=== PATIENT | female | born 1990 | race Caucasian/White ===

== ENCOUNTER 2017-05-16 04:18 | Inpatient (IN) | payer BC ==
[2017-05-16] MEDS ORDERED: Sodium Chloride 0.9% 2.5 ML Syringe FLUSH PRN (20:47)
[2017-05-16] MEDS ORDERED: Methylergonovine 0.2 MG/1 ML Amp IM PRN (20:47)
[2017-05-16] MEDS ORDERED: Misoprostol 25 MCG (1/4 of 100 MCG) Tab VAG PRN (20:47)
[2017-05-16] MEDS ORDERED: Sodium Chloride 0.9% 10 ML Syringe FLUSH PRN (20:47)
[2017-05-16] MEDS ORDERED: Misoprostol 200 MCG Tab PO PRN (20:47)
[2017-05-16] MEDS ORDERED: Lidocaine 1% 50 ML MDV INJECT PRN (20:47)
[2017-05-16] MEDS ORDERED: Carboprost Tromethamine 250 MCG/1 ML Amp IM PRN (20:47)
[2017-05-16] MEDS ORDERED: Butorphanol 1 MG/ML SDV IVPUSH PRN (20:47)
[2017-05-16] MEDS ORDERED: Terbutaline 1 MG/ML SDV SUBCUT PRN (20:47)
[2017-05-16] MEDS ORDERED: Water For Irrigation,Sterile 1,000 ML Container IRR PRN (20:47)
[2017-05-16] MEDS ORDERED: Oxytocin/0.9 % Sodium Chloride 30 UNIT/500 ML BAG IV SCH ×2 (21:00)
[2017-05-16] MEDS ORDERED: Misoprostol 25 MCG (1/4 of 100 MCG) Tab VAG SCH (21:00)
[2017-05-16] MEDS: Lactated Ringers 1,000 ML IV SCH (21:07)
[2017-05-17] MEDS: Lactated Ringers 1,000 ML IV SCH (01:33)
--- NOTE | 2017-05-17 01:56 | PCM.PREANE ---
Preanesthetic Assessment - Anesthesia/Transfusion/Family Hx Anesthesia History: Prior Anesthesia Without Reaction Transfusion History: No Prior Transfusion(s) - Review of Systems General: No Symptoms Pulmonary: No Symptoms Cardiovascular: No Symptoms Gastrointestinal: No Symptoms Neurological: No Symptoms Other: Reports: None - Physical Assessment Height: 5 ft 6 in Weight: 94.256 kg ASA Class: 2 Mental Status: Alert & Oriented x3 Airway Class: Mallampati = 2 Dentition: Reports: Normal Dentition Thyro-Mental Finger Breadths: 3 Mouth Opening Finger Breadths: 3 ROM/Head Extension: Full Lungs: Clear to Auscultation, Normal Respiratory Effort Cardiovascular: Regular Rate, Regular Rhythm - Lab Values: Laboratory Last Values WBC 8.55 K/uL (4.0-11.0) 05/16/17 21:00 RBC 4.24 M/uL (4.30-5.90) L 05/16/17 21:00 Hgb 12.1 g/dL (12.0-16.0) 05/16/17 21:00 Hct 36.6 % (36.0-46.0) 05/16/17 21:00 MCV 86.3 fL (80.0-98.0) 05/16/17 21:00 MCH 28.5 pg (27.0-32.0) 05/16/17 21:00 MCHC 33.1 g/dL (31.0-37.0) 05/16/17 21:00 RDW Std Deviation 45.1 fl (28.0-62.0) 05/16/17 21:00 RDW Coeff of Harvey 15 % (11.0-15.0) 05/16/17 21:00 Plt Count 201 K/uL (150-400) 05/16/17 21:00 MPV 9.90 fL (7.40-12.00) 05/16/17 21:00 Nucleated RBC % 0.0 /100WBC 05/16/17 21:00 Nucleated RBCs # 0 K/uL 05/16/17 21:00 Blood Type B POSITIVE 05/16/17 21:00 Antibody Screen NEGATIVE 05/16/17 21:00 - Allergies Allergies/Adverse Reactions: Allergies Allergy/AdvReac Type Severity Reaction Status Date / Time Penicillins Allergy Rash Verified 09/28/14 14:59 - Acknowledgements Anesthesia Type Planned: Epidural Pt an Appropriate Candidate for the Planned Anesthesia: Yes Alternatives and Risks of Anesthesia Discussed w Pt/Guardian: Yes Pt/Guardian Understands and Agrees with Anesthesia Plan: Yes PreAnesthesia Questionnaire - Past Health History Medical/Surgical History: Denies Medical/Surgical History Cardiovascular History: Reports: None Respiratory History: Reports: None Gastrointestinal History: Reports: GERD Genitourinary History: Reports: None 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 Para: 1 LMP (Approximate): Musculoskeletal History: Reports: None Neurological History: Reports: Migraines Psychiatric History: Reports: Anxiety, Depression Endocrine/Metabolic History: Reports: Obesity/BMI 30+ Hematologic History: Reports: None Immunologic History: Reports: None Oncologic (Cancer) History: Reports: None Dermatologic History: Reports: None - Infectious Disease History Infectious Disease History: Reports: None - SUBSTANCE USE Smoking Status *Q: Never Smoker Second Hand Smoke Exposure: No Recreational Drug Use History: No - CURRENT (IN HOUSE) MEDS Current Meds: Current Medications Butorphanol Tartrate (Stadol) 1 mg IVPUSH ASDIRECTED PRN PRN Reason: Pain Last Admin: 05/17/17 01:18 Dose: 1 mg Carboprost Tromethamine (Hemabate Ds) 250 mcg IM ASDIRECTED PRN PRN Reason: Post Hemorrhage Lactated Ringer's (Ringers, Lactated) 1,000 mls @ 150 mls/hr IV ASDIRECTED IZABEL Last Admin: 05/17/17 01:33 Dose: 150 mls/hr Oxytocin/Sodium Chloride (Oxytocin 30 Unit/500 Ml-Ns) 30 unit in 500 mls @ 2 mls/hr IV TITRATE IZABEL; 2 MUNITS/MIN PRN Reason: Protocol Oxytocin/Sodium Chloride (Oxytocin 30 Unit/500 Ml-Ns) 30 unit in 500 mls @ 999 mls/hr IV ASDIRECTED IZABEL Lidocaine HCl (Xylocaine 1%) 50 ml INJECT .ONCE PRN PRN Reason: Laceration repair Methylergonovine Maleate (Methergine) 0.2 mg IM ASDIRECTED PRN PRN Reason: Post Hemorrhage Misoprostol (Cytotec) 25 mcg VAG .ONCE IZABEL Last Admin: 05/16/17 21:12 Dose: 25 mcg Misoprostol (Cytotec) 25 mcg VAG Q4H PRN PRN Reason: Cervical Ripening Misoprostol (Cytotec) 200 mcg PO .ONCE PRN PRN Reason: Post Hemorrhage Sodium Chloride (Saline Flush) 10 ml FLUSH ASDIRECTED PRN PRN Reason: Keep Vein Open Sodium Chloride (Saline Flush) 2.5 ml FLUSH ASDIRECTED PRN PRN Reason: Keep Vein Open Sterile Water (Sterile Water For Irrigation) 1,000 ml IRR ASDIRECTED PRN PRN Reason: delivery Terbutaline Sulfate (Brethine) 0.25 mg SUBCUT ASDIRECTED PRN PRN Reason: Tacysystole
[2017-05-17] MEDS ORDERED: fentaNYL 100 MCG/2 ML SDV ONE (02:02)
[2017-05-17] MEDS ORDERED: Ropivacaine HCl/PF 100 ML ONE (02:02)
[2017-05-17] MEDS ORDERED: Bupivacaine 0.5% 10 ML SDV ONE (02:35)
[2017-05-17] MEDS ORDERED: ePHEDrine 50 MG/ML SDV ONE (02:41)
[2017-05-17] MEDS ORDERED: Bisacodyl 10 MG Supp RECTAL PRN (04:52)
[2017-05-17] MEDS ORDERED: Acetaminophen 500 MG Tab PO PRN ×2 (04:52)
[2017-05-17] MEDS ORDERED: Ondansetron 4 MG/2 ML SDV IVPUSH PRN (04:52)
[2017-05-17] MEDS ORDERED: Lanolin 100% Cream 7 GM Tube TOP PRN (04:52)
[2017-05-17] MEDS ORDERED: Aluminum Hydroxide/Magnesium Hydroxide/Simethicone Susp 30 ML Cup PO PRN (04:52)
[2017-05-17] MEDS ORDERED: oxyCODONE 5 MG Tab PO PRN (04:52)
[2017-05-17] MEDS ORDERED: Ibuprofen 400 MG Tab PO PRN (04:52)
[2017-05-17] MEDS ORDERED: Docusate Sodium 100 MG Cap PO PRN (04:52)
[2017-05-17] MEDS ORDERED: Witch Hazel Medicated Pads 40/Jar TOP PRN (04:52)
[2017-05-17] MEDS ORDERED: Benzocaine/Menthol 20%-0.5% Spray 78 GM Cannister TOP PRN (04:52)
--- NOTE | 2017-05-17 07:09 | OR ---
SURGEON: Marielena Robins M.D. DATE OF PROCEDURE: 05/17/2017 PREOPERATIVE DIAGNOSES: 1. 39-week intrauterine . 2. Elective induction of labor. POSTOPERATIVE DIAGNOSES: 1. 39-week intrauterine . 2. Elective induction of labor. PROCEDURE: Spontaneous vaginal delivery, second-degree midline laceration repaired. ANESTHESIA: Epidural. ESTIMATED BLOOD LOSS: 300 mL. FINDINGS: Term male, scores 9 at 1 minute and 9 at 5 minutes, weight of 3580 g. Spontaneous delivery, intact placenta, 3-vessel cord. DISPOSITION: in nursery and mom in LDRP, stable. PROCEDURE DETAILS: Beverly is a 26-year-old, , at 39 weeks' gestational age, who presented on the evening of 05/16/2017 for scheduled elective induction of labor. She has a favorable cervix, found to be 2 cm, 70% effaced, -2 station. She was admitted and routine labs were drawn. Reactive NST was obtained. She was initiated on Cytotec induction. She responded very nicely to this, began having contractions within the hour, and responded nicely to contractions and made cervical change. Rather quickly was found to be 5 cm. Shortly after 2:00 a.m., underwent regional anesthesia from epidural, became more comfortable, and progressed to complete, 100% effaced, 0 station shortly thereafter. I was called and was updated. Upon my arrival, amniotomy was performed, clear fluid was returned. The patient shortly thereafter began pushing efforts, easily pushed to a +2 station. Thereafter, there was left descent change and on palpation felt that the fetus was ROP; therefore, gently rotated the infant to a JESUS position. Thereafter, the patient was able to continue to push and easily pushed to a +3 station. She was placed in modified dorsal lithotomy position, and was prepped and draped in the usual aseptic manner. Continued with pushing efforts and was able to deliver 's head atraumatically spontaneously followed by anterior shoulder, posterior shoulder, and remainder of the body. Infant's oropharynx and nares were bulb suctioned. Cord was clamped x2 and cut. Infant was handed off to his mother with attending nursing staff at her side. Cord arterial, cord venous, cord blood sampling was obtained. Light suprapubic pressure was applied while the placenta was delivered spontaneously intact. Vigorous fundal uterine massage was then applied while 30 units of Pitocin was delivered in 500 mL of IV fluid. Upon inspection of cervix, vaginal sidewalls, and perineum, there was found to be a second-degree midline laceration. This was repaired using 3-0 Vicryl in the usual fashion. The patient tolerated the repair well. Uterus remained firm. Hemostasis remained evident. Sponge count and needle count were correct. The patient will remain in LDRP and infant in nursery. YEN / DUNCAN /[id number]
[2017-05-17] MEDS: Ibuprofen 800 MG Tab PO PRN ×2 (11:32→19:22)
--- NOTE | 2017-05-17 17:31 | PCM.SN ---
- Free Text/Narrative Note: Doing well, no complaints. Pain controlled. Has ambulated and voided. Lochia is dissipating. going well overall. Continue cares and anticipate discharge in the morning.
[2017-05-17 20:53] VITALS: BP 123/69
[2017-05-18] MEDS: Ibuprofen 800 MG Tab PO PRN (00:50)
== END 2017-05-18 12:05 | disposition home or self-care (01) | DRG 560 ==
LOC: MW.OB 04:18 → OBSVTOIN 05-17 04:18
PROVIDERS: ADMIT Obstetrics & Gynecology; ATTEND Obstetrics & Gynecology
PROC: 10E0XZZ Delivery of Products of Conception, External Approach (ICD-10-PCS; principal; 2017-05-17)
PROC: 3E0P7VZ Introduction of Hormone into Female Reproductive, Via Natural or Artificial Opening (ICD-10-PCS; 2017-05-17)
PROC: 0KQM0ZZ Repair Perineum Muscle, Open Approach (ICD-10-PCS; 2017-05-17)
PROC: 10907ZC Drainage of Amniotic Fluid, Therapeutic from Products of Conception, Via Natural or Artificial Opening (ICD-10-PCS; 2017-05-17)
DX: O70.1 Second degree perineal laceration during delivery (principal); Z3A.39 39 weeks gestation of pregnancy; Z37.0 Single live birth
CPT/HCPCS: 01967; 36415; 51702; 59025; 59409; 85014; 85018; 85027; 86850; 86900; 86901; A9270-GY; J0595; J2590; J7120

== ENCOUNTER 2018-09-16 23:40 | Emergency (ER) | payer BC ==
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
[2018-09-17 00:51] LABS: CHLORIDE,CL 106 mmol/L (98-107); SODIUM,NA 141 mmol/L (136-145)
[2018-09-17 01:27] VITALS: BP 121/74
== END 2018-09-17 01:30 | disposition home or self-care (01) ==
LOC: MW.ED 23:40
DX: S06.0X9A Concussion with loss of consciousness of unspecified duration, initial encounter (principal); F41.9 Anxiety disorder, unspecified; F32.9 Major depressive disorder, single episode, unspecified; Z88.0 Allergy status to penicillin; Z79.899 Other long term (current) drug therapy; V58.5XXA Driver of pick-up truck or van injured in noncollision transport accident in traffic accident, initial encounter
CPT/HCPCS: 36415; 70450; 70450-26; 71045; 71045-26; 72125; 72125-26; 72170; 72170-26; 80053; 81003; 81025; 85025; 99284; 99284-25